=== PATIENT | male | born 1950 | race Caucasian/White ===

== ENCOUNTER 2022-11-11 05:40 | Day surgery (SDC) | payer MEDICARE ==
[~2022-11-11 05:40] MED LIST: ACETAMINOPHEN TAB 500 MG TAB PO PRN; GABAPENTIN 300 MG CAP PO PRN; MELOXICAM 7.5 MG TAB PO PRN; TRANEXAMIC 1,000 MG/100ML-NACL 1,000 MG in SALINE 1 100ML.BAG IVPB PRN
[2022-11-11] MEDS ORDERED: ONDANSETRON 4 MG/2 ML VIAL IVP ONE (06:02)
[2022-11-11] MEDS ORDERED: HYDROmorphone 0.5 MG/0.5 ML SYRINGE IVP PRN ×4 (06:02→08:50)
[2022-11-11] MEDS ORDERED: LIDOCAINE 1% (10MG/ML) FOR IV START INTRADERMA PRN (06:02)
[2022-11-11] MEDS ORDERED: ONDANSETRON 4 MG/2 ML VIAL ONE (06:08)
[2022-11-11] MEDS ORDERED: DEXAMETHASONE SOD PHOSPHATE 4 MG/ML 1 ML VIAL IVP ONE (06:20)
[2022-11-11] MEDS: LACTATED RINGERS 1,000 ML IV SCH ×2 (06:20→11:20)
[2022-11-11] MEDS ORDERED: MIDAZOLAM 2 MG/2 ML VIAL IVP ONE (06:40)
[2022-11-11 07:06] LABS: Glucose,Whole Blood 120 mg/dL (70-110)
[2022-11-11] MEDS ORDERED: ceFAZolin 1,000 MG in SODIUM CHLORIDE 0.9% 1,000 ML IRRIGATION ONE (07:06)
--- NOTE | 2022-11-11 08:14 | P.OP ---
Date of Procedure: 11/11/22 Preoperative Diagnosis: Severe osteoarthritis right knee Postoperative Diagnosis: Severe osteoarthritis right knee Procedure(s) Performed: Right total knee arthroplasty Implants: Rub[employer] Nephew Journey II CR Oxinium cruciate retaining femoral component size 8, right [employer] Journey nonporous tibial baseplate size 7, right [employer] Journey II, XLPE Deep Dished articular insert, size 12 mm, Size 7-8, right [employer] Journey Jasmine II resurfacing patellar component, oval, 35 mm All components were cemented using Palacos R bone cement The articulation is Oxinium on polyethylene Anesthesia: spinal Surgeon: Suhail Pike Transition Manager #1: Suzette Todd Estimated Blood Loss (ml): 50 Pathology: none sent Condition: stable Disposition: PACU Indications for Procedure: The patient's knee is end-stage, and conservative management has failed. The operation of knee replacement has been discussed at length in the office, as well as potential risks and complications. These are inclusive of, but not li mited to: Infection, bleeding, scarring, discomfort, stiffness, blood vessel and nerve damage, need for further surgery, failure to relieve symptoms, persistence, recurrence, or worsening of problems, loosening, dislocation, wear, blood clot, pulmonary embolism, , gait dysfunction, stiffness, and other risks as discussed in the office. Patient elects to proceed and the consent form has been signed. Operative Findings: The operative findings are consistent with severe osteoarthritis of the right knee Description of Procedure: The patient was seen in the preoperative area, the consent was reviewed and the operative site was marked with a skin marker. The patient verified the procedure and the operative site. An adductor canal pain catheter and an iPACK block were placed by anesthesia in the preoperative area. The patient was then brought to the operating room and positioned on the operating room table in the supine position. Preoperative antibiotics and a gram of tranexamic acid were given intravenously. A spinal anesthetic was administered by the anesthesia department. Care was taken to make sure that all pressure points were adequately padded. A tourniquet was placed on the upper thigh and the lower extremity was prepped with ChloraPrep and draped in usual sterile fashion. A universal time-out was then performed which confirmed the patient's name, surgical site, ALLERGIES, and consent. The lower extremity was then exsanguinated and tourniquet was inflated to 250 mmHg. A standard anterior midline approach to the knee was performed. The skin and subcutaneous tissue were sharply dissected down to the patellar tendon. A medial parapatellar arthrotomy was then performed. The knee was then extended, the patellar was everted, and the knee was flexed. The infra-patellar fat pad was removed in order to enhance exposure. The anterior horns of both menisci were excised, and a release was performed to the posterior medial aspect of the knee. On gross visual inspection, there was complete loss of articular cartilage in the medial and patellofemoral joint spaces. There was also significant cartilage damage in the lateral compartment. There were multiple periarticular osteophytes globally about the knee which were then removed with a Ronguer. The femoral canal was then opened with the 9.5 mm intramedullary drill. The 8 mm intramedullary maurice was then inserted into the femoral canal with the distal femoral cutting guide set for 5 of valgus. The distal femoral cutting block was then pinned in place. The intramedullary maurice was then removed, and the distal femur was then cut. The cutting block was then removed and the cut was checked for symmetry. The resected bone was then measured to confirm the appropriate distal femoral resection. Next, the sizing guide was then placed and set for 3 external rotation based off of the epicondylar axis and [place]'s line. Pins were then placed and the drill holes, and the femur was sized with the sizing stylus. The pins were then removed, and the sizing guide was then removed. The spikes of the appropriate size femoral block was t hen placed into the predrilled holes, and malleted into place. Two 45 mm pins were then placed into the fixation holes on the cutting block. An hugo wing was then used to ensure there would be no notching with the anterior cut. The anterior condyles were cut without notching. The anterior chord cut was then performed, followed by the posterior cut, posterior chamfer cut, and the anterior chamfer cut. The collateral ligaments were protected during the entire process. The cutting block was then removed. Any remaining bone and osteophytes were removed from the femur with a Ronguer. Attention was then directed to the tibia. The remaining ACL was removed with a Ronguer, and the tibia was then gently subluxed forward with a large bent knee retractor. Any remaining menisci were excised. The posterior lateral corner was cauterized in order to coagulate the lateral geniculate artery. The extra medullary tibial cutting guide was then placed, set for the appropriate rotation, slope, and depth of resection. The proximal tibia cutting guide was then pinned in place. Proximal tibia was then cut and sized. A curved osteotome was then used to remove any posterior osteophytes from the distal femur. The femoral trial was placed. A narrow saw blade was then used to remove the anterior intracondylar femoral bone. The CR notch trial was then placed. The tibial trial was placed with the appropriate-sized insert. The knee was able to fully extend and flex to 130 and was stable throughout all range of motion. The knee was then extended and the patella was everted. Patella was then measured, and then using an osteotomy guide, the patella was cut at the appropriate level. The patellar component was sized. The patellar drill guide was placed and the patella was drilled. The patella trial was then placed. The knee was then taken through range of motion with the patella trial and the patella tracked normally using the no thumbs technique. The patella trial was then removed. The knee was then flexed and lug holes were drilled through the femoral trial and the femoral trial was then removed. The tibial was then re- exposed, and the tibial broach guide was then pinned in place after it was set for the appropriate rotation to allow for the most coverage without overhang. The tibia was then reamed and broached. The femoral canal was plugged with autologous bone. The cut surfaces of bone were then irrigated with pulsatile lavage. The knee was also irrigated with Irrisept solution. The components were then opened, the cement was mixed. Cement was placed on the backside of the femoral, tibial, and patellar components. Cement was then applied to the tibial surface and pressurized into the surface using finger pressurization technique. The tibial component was then applied and excess cement was removed after it was impacted securely noted to be flush with the cut surface. In similar fashion, the cement was applied to the cut femoral surface, pre ssurized and using finger pressurization the component was impacted in place. Excess cement was removed. The polyethylene spacer was then implanted and locked into position. Patellar component was then applied in a similar technique and the patellar clamp was used to hold patella in place while the cement hardened. The knee was held in full extension while the cement hardened. Once the cement had fully hardened, the knee was reinspected. Any other cement extrusion was removed the final range of motion testing showed range of motion from 0-130 with excellent stability, both medial and laterally and appropriate alignment of the leg. Patella tracked normally. After the cemented hardened, the tourniquet was released and hemostasis was obtained. A second gram of transexamic acid was given intravenously. The knee was again irrigated. The knee was again taken through range of motion and found to be stable throughout all range of motion of 0-130, and the patella tracked normally. The fascia was then closed with 0 Vicryl followed by #2 strata fix suture. The subcutaneous tissue was closed with 3-0 Vicryl and 3-0 strata fix. Exofin glue was used for the skin and placed with the knee in flexion. After the glue had dried, and Optafoam silver impregnated dressing was applied. A lightly compressive dressing was applied using web roll and Edwardo wrap. Patient was then transferred to the stretcher and taken to recovery room in stable condition. Sponge and needle counts were correct. The library services assistant GALE Rausch was required due the complexity surgery and the need for a skilled surgical orderly. She assisted in positioning, draping, retraction, and closure of the wound.
[2022-11-11] MEDS ORDERED: NA PHOS,M-B/NA PHOS,DI-BA 133 ML ENEMA RECTAL PRN (08:50)
[2022-11-11] MEDS ORDERED: TEMAZEPAM 15 MG CAP PO PRN (08:50)
[2022-11-11] MEDS ORDERED: MAGNESIUM HYDROXIDE 2,400 MG/30 ML CUP PO PRN (08:50)
[2022-11-11] MEDS ORDERED: HYDROcodone/APAP 5-325MG 1 EACH TAB PO PRN (08:50)
[2022-11-11] MEDS ORDERED: bisacodyL 10 MG SUPP RECTAL PRN (08:50)
[2022-11-11] MEDS ORDERED: NALOXONE 0.4 MG/ML 1 ML VIAL IV PRN (08:50)
[2022-11-11] MEDS ORDERED: ONDANSETRON 4 MG/2 ML VIAL IVP PRN (08:50)
--- NOTE | 2022-11-11 09:19 | XR ---
EXAMINATION TYPE: XR knee limited RT DATE OF EXAM: 11/11/2022 9:15 AM INDICATION: Patient age:Male; 72 years old; Reason for study: Evaluation for Postop abnormality and alignment; PHH. COMPARISON: None. TECHNIQUE: The Right knee(s) was examined in Frontal and crosstable lateral projections. FINDINGS: Postsurgical changes from right knee arthroplasty with distal femoral and proximal tibial components. Hardware appears intact with appropriate alignment. There is associated soft tissue gas and edema. No acute fracture or dislocation. IMPRESSION: Post surgical changes from right knee arthroplasty. Hardware appears intact with appropriate alignmen t.
[2022-11-11] MEDS ORDERED: LACTATED RINGERS 1,000 ML IV ONE ×2 (09:49)
[2022-11-11 11:23] LABS: Glucose,Whole Blood 159 mg/dL (70-110)
[2022-11-11] MEDS: HYDROcodone/APAP 5-325MG 1 EACH TAB PO PRN ×2 (12:07→18:22)
[2022-11-11 16:39] LABS: Glucose,Whole Blood 292 mg/dL (70-110)
--- NOTE | 2022-11-11 17:25 | P.CONS ---
History of Present Illness - Reason for Consult Consult date: 11/11/22 Medical management Requesting physician: Suhail Pike - History of Present Illness History of Presenting Illness: Patient is a very pleasant 72-year-old male with a past medical history coronary artery disease, hypertension, hyperlipidemia, type II vvc-arqmvwf-icssniwhj diabetes mellitus, and BPH. He is currently admitted under orthopedic surgery team and is status post elective right total knee arthroplasty secondary to severe osteoarthritis of right knee. We have been consulted for medical management throughout patient's hospitalization. Patient seen and fully adria luated at bedside. Patient denies having any headache, lightheadedness, dizziness, chest pain, palpitations, shortness of breath, or experiencing any numbness/tingling/focal weakness. Patient does report having postoperative urinary retention. He denies having any nausea or vomiting and denies any other complaints at this time. Review of systems: Pertinent positives and negatives as discussed in HPI, a complete review of systems was performed and all other systems are negative. Physical exam: Vital signs reviewed and stable. General: Nontoxic, no distress and appears stated age. Derm: Skin warm and dry, normal coloration for ethnicity. Head: Atraumatic, normocephalic and symmetric. Eyes: EOMs intact, no lid lag, and anicteric sclera Mouth: no lip lesions, mucus membranes moist Cardiovascular: regular rate and rhythm with normal S1S2, no murmur, positive posterior tibial pulses bilaterally, and cap refill < 2 seconds. Lungs: Respirations even, regular, and unlabored on room air. Lungs CTA bilaterally, no rhonchi, no rales, no wheezing, and no accessory muscle usage. Abdominal: soft, nontender to palpation, no guarding, no appreciable organomegaly Ext: No gross muscle atrophy, no edema, no contractures. Movement and sensation intact. Postsurgical dressing/Edwardo wrap in place to right knee with ice packs in place. Neuro: Speech clear, face symmetrical and CN II-XII grossly intact with no noted focal neuro deficits Psych: Alert and oriented to person, place, time, and situation. Appropriate and pleasant affect. Assessment and Plan of Care: Severe osteoarthritis of right knee Status post elective right total knee arthroplasty -Management per primary admitting orthopedic surgery team including DVT prophylaxis, pain management, weightbearing, wound/dressing care, and PT/OT. -Patient currently on DVT prophylaxis with aspirin 325 mg twice daily. Postoperative urinary retention History of BPH -Patient started back on Flomax this evening in order placed for bladder management. -We will continue to monitor and straight cath as needed for urinary retention equal to or greater than 400 mL. Patient has required 1 straight catheterization for urinary retention of 900 mL's. Type II hrr-dtdirep-yfrhmoiww diabetes mellitus with hyperglycemia -Hold metformin in place patient on glycemic protocol with NovoLog sliding scale. Coronary artery disease Hypertension Hyperlipidemia -Patient to continue with daily aspirin, hydrochlorothiazide 12.5 mg daily, lisinopril 10 mg twice daily, and simvastatin 40 mg daily. Thank you for allowing us to participate in the care of this pleasant patient. Do not hesitate to contact us with questions. Someone can be reached from the [facility] hospitalist group all hours of the day at [phone] or via [employer]. Patient was seen independently by Nurse Practitioner. This document was prepared using [employer] dictation software. Please allow for errors in meat passer while rare they do occur. Past Medical History Past Medical History: Coronary Artery Disease (CAD), Cancer, Diabetes Mellitus, Eye Disorder, Hearing Disorder / Deafness, Hyperlipidemia, Hypertension, Osteoarthritis (OA), Sleep Apnea/CPAP/BIPAP Additional Past Medical History / Comment(s): Basal cell skin cancer with removal, NIDDM type II, glaucoma bilaterally, [place] bilaterally with aides, JESSIE with dental appliance, benign colon polyps History of Any Multi-Drug Resistant Organisms: None Reported Past Surgical History: Joint Replacement, Orthopedic Surgery, Tonsillectomy Additional Past Surgical History / Comment(s): Bilateral knee arthroscopies, total R hip, colonoscopies Past Anesthesia/Blood Transfusion Reactions: Motion Sickness Past Psychological History: Anxiety Additional Psychological History / Comment(s): Pt resides with spouse. Pt has a cane occasionally. Smoking Status: Former smoker Past Alcohol Use History: Daily Additional Past Alcohol Use History / Comment(s): Pt started smoking in 1967 and quit in 2014. One beer a day. Past Drug Use History: None Reported - Past Family History Mother Family Medical History: Cancer Additional Family Medical History / Comment(s): from colon cancer. Father Family Medical History: Diabetes Mellitus, Myocardial Infarction (CT) Additional Family Medical History / Comment(s): IDDM Medications and Allergies Home Medications Medication Instructions Recorded Confirmed Type Aspirin [Adult Low Dose Aspirin EC] 81 mg PO QAM 11/07/22 11/07/22 History Cyanocobalamin [Vitamin B-12] 500 mcg PO DAILY 11/07/22 11/07/22 History Fexofenadine HCl 180 mg PO QAM 11/07/22 11/11/22 History Ibuprofen 600 mg PO Q6H PRN 11/07/22 11/07/22 History Latanoprost [Latanoprost 0.005%] 1 drop HS 11/07/22 11/11/22 History Magnesium Citrate 133 mg PO QAM 11/07/22 11/07/22 History Multivitamins, Thera [Multivitamin 1 tab PO QAM 11/07/22 11/07/22 History (formulary)] Sertraline [Zoloft] 25 mg PO HS 11/07/22 11/11/22 History Simvastatin 40 mg PO QAM 11/07/22 11/11/22 History Tamsulosin [Flomax] 0.4 mg PO HS 11/07/22 11/11/22 History hydroCHLOROthiazide 12.5 mg PO QAM 11/07/22 11/11/22 History lisinopriL [Zestril] 10 mg PO BID 11/07/22 11/11/22 History metFORMIN HCL [Glucophage] 850 mg PO BID 11/07/22 11/11/22 History Aspirin 325 mg PO BID #60 tab 11/11/22 Rx HYDROcodone/APAP 7.5-325MG [Marrero 1 - 2 tab PO Q6HR PRN #32 tab 11/11/22 Rx 7.5-325] Meloxicam 7.5 mg PO DAILY PRN #30 tab 11/11/22 Rx Ondansetron Odt [Zofran Odt] 4 mg PO Q8HR PRN #14 tab 11/11/22 Rx Sennosides-Docusate Sodium 1 tab PO BID #60 tablet 11/11/22 Rx [Senokot-S] Allergies Allergy/AdvReac Type Severity Reaction Status Date / Time No Known Allergies Allergy Verified 11/11/22 06:14 Physical Exam Vitals: Vital Signs Temp Pulse Pulse Resp BP Pulse Ox 11/11/22 14:00 97.4 F L 68 18 150/65 97 11/11/22 11:24 97 11/11/22 11:07 97.5 F L 72 17 146/80 97 11/11/22 10:30 71 16 134/67 97 11/11/22 10:00 62 14 127/65 97 11/11/22 09:30 71 16 144/74 98 11/11/22 09:15 70 14 143/71 96 11/11/22 09:00 68 16 144/70 96 11/11/22 08:44 97.0 F L 64 14 155/73 96 11/11/22 06:53 66 15 139/66 97 11/11/22 06:18 97.2 F L 68 18 159/68 91 L Intake and Output 11/11/22 11/11/22 11/11/22 06:59 14:59 22:59 Intake Total 200 951 Output Total 50 900 Balance 200 901 -900 Intake: IV 200 951 Output: Urine 900 Straight 900 Estimated Blood Loss 50 Other: Weight 93.2 kg 93.2 kg Results Labs: Abnormal Lab Results - Last 24 Hours (Table) 11/11/22 11/11/22 11/11/22 Range/Units 06:33 11:22 16:38 POC Glucose (mg/dL) 120 H 159 H 292 H (70-110) mg/dL
[2022-11-11] MEDS: ASPIRIN 325 MG TAB PO SCH (20:44)
[2022-11-11] MEDS: lisinopriL 10 MG TAB PO SCH (20:44)
--- NOTE | 2022-11-11 20:49 | P.ANPRN ---
Procedure Note - Anesthesia - Nerve Block Performed Right Adductor Canal Infusion Time Out Performed: Yes Date of Procedure: 11/11/22 Procedure Start Time: 06:39 Procedure Stop Time: 06:48 Location of Patient: PreOp Indication: Acute Post-Operative Pain, Requested by Surgeon Sedation Type: Sedate with meaningful contact maintained Preparation: Sterile Prep Position: Supine Catheter: Indwelling Needle Types: On-Q Needle Gauge: 21 Ultrasound used to visualize needle placement: Yes Ultrasound used to observe medication spread: Yes Blood Aspirated: No Pain Paresthesia on Injection Noted: No Resistance on Injection: Normal Image Stored and Saved: Yes Events: Uneventful and Well Tolerated (ropi .5% 20cc plus dexamethasone 4mg)
--- NOTE | 2022-11-11 20:50 | P.ANPRN ---
Procedure Note - Anesthesia - Nerve Block Performed Right Isabelck Single Time Out Performed: Yes Date of Procedure: 11/11/22 Procedure Start Time: 06:49 Procedure Stop Time: 06:53 Location of Patient: PreOp Indication: Acute Post-Operative Pain, Requested by Surgeon Sedation Type: Sedate with meaningful contact maintained Preparation: Sterile Prep Position: Supine Needle Types: Pajunk Needle Gauge: 21 Ultrasound used to visualize needle placement: Yes Ultrasound used to observe medication spread: Yes Blood Aspirated: No Pain Paresthesia on Injection Noted: No Resistance on Injection: Normal Image Stored and Saved: Yes Events: Uneventful and Well Tolerated (ropi .5% 25cc plus dexamethasone 4mg)
[2022-11-11 20:59] LABS: Glucose,Whole Blood 225 mg/dL (70-110)
[2022-11-11] MEDS ORDERED: TAMSULOSIN 0.4 MG CAP.ER.24H PO SCH (21:00)
[2022-11-11] MEDS ORDERED: LATANOPROST 0.005% OPHTH DROPS 2.5 ML BTL BOTH EYES SCH (21:00)
[2022-11-11] MEDS ORDERED: SERTRALINE 25 MG TAB PO SCH (21:00)
[2022-11-11] MEDS ORDERED: SENNOSIDES-DOCUSATE SODIUM 1 EACH TAB PO SCH (21:00)
[2022-11-12] MEDS: HYDROcodone/APAP 5-325MG 1 EACH TAB PO PRN ×2 (00:28→10:08)
[2022-11-12 05:51] LABS: Glucose,Whole Blood 161 mg/dL (70-110)
[2022-11-12 07:45] VITALS: BP 126/67; PULSE 79; RESP 16; TEMP 98.2
--- NOTE | 2022-11-12 08:14 | P.PN ---
Progress Note - Text 11/12/22 747am 72-year-old male status post total knee replacement. Patient has an On-Q pump for postop pain control with the solution running at 8 mL an hour with a VAS of dressing clean dry and intact plan to continue On-Q pump infusion
[2022-11-12] MEDS ORDERED: CYANOCOBALAMIN 500 MCG TAB PO SCH (09:00)
[2022-11-12] MEDS ORDERED: ATORVASTATIN 20 MG TAB PO SCH (09:00)
[2022-11-12] MEDS ORDERED: MELOXICAM 7.5 MG TAB PO SCH (09:00)
[2022-11-12] MEDS ORDERED: hydroCHLOROthiazide 12.5 MG CAP PO SCH (09:00)
[2022-11-12] MEDS: LACTATED RINGERS 1,000 ML IV SCH ×2 (09:50)
[2022-11-12] MEDS: ASPIRIN 325 MG TAB PO SCH (09:58)
[2022-11-12] MEDS: lisinopriL 10 MG TAB PO SCH (09:59)
[2022-11-12 11:11] LABS: Basophils # (A) 0.01 X 10*3/uL (0.00-0.10); Basophils % (A) 0.1 %; Eosinophils # (A) 0.01 X 10*3/uL (0.04-0.35); Eosinophils % (A) 0.1 %; HCT 29.8 % (39.6-50.0); HGB 10.2 d/dL (13.0-17.0); Lymphocytes # (A) 0.85 X 10*3/uL (0.90-5.00); Lymphocytes % (A) 10.4 %; MCH 30.7 pg (27.0-32.0); MCHC 34.2 d/dL (32.0-37.0); MCV 89.8 FL (80.0-97.0); Mean Platelet Volume 9.1 FL (9.5-12.2); Monocytes # (A) 0.94 X 10*3/uL (0.20-1.00); Monocytes % (A) 11.5 %; NRBC Per 100 WBC 0 X 10*3/uL (0.00-0.01); Neutrophils # (A) 6.35 X 10*3/uL (1.80-7.70); Neutrophils % (A) 77.5 %; Platelet Count 215 X 10*3/uL (140-440); RBC 3.32 X 10*6/uL (4.40-5.60); RDW 12.2 % (11.5-14.5); WBC 8.19 X 10*3/uL (4.50-10.00)
[2022-11-12 11:25] LABS: Glucose,Whole Blood 129 mg/dL (70-110)
--- NOTE | 2022-11-12 11:51 | P.DS ---
Providers Date of admission: 11/11/2022 Expected date of discharge: 11/12/22 Attending physician: Suhail Pike Consults: 11/11/22 08:50 Consult Physician Routine Consulting Provider: Jill Rollins Consult Reason/Comments: medical management Do you want consulting provider notified?: Yes Primary care physician: Stated None - Discharge Diagnosis(es) (1) History of BPH Current Visit: Yes Status: Acute (2) Postoperative urinary retention Current Visit: Yes Status: Acute (3) Type 2 diabetes mellitus Current Visit: Yes Status: Acute (4) Coronary artery disease Current Visit: Yes Status: Acute (5) Osteoarthritis of right knee Current Visit: Yes Status: Acute (6) Status post total right knee replacement Current Visit: Yes Status: Acute Hospital Course: This is a pleasant 72-year-old male who presented with severe osteoarthritis of the right knee who failed outpatient conservative therapy. He was admitted for a right total knee arthroplasty. The patient tolerated the procedure well and did well postoperatively in regards to his right knee. He does feel he would be ready for discharge home today regards to his right knee. Condition on day of discharge stable. Patient was cleared preoperatively for surgery. He has been able to work with physical therapy and feels ready for discharge for his right knee. Patient currently denies any nausea, vomiting, fever, or chills. Patient is eating and voiding freely without difficulty. Patient may shower Optifoam dressing intact. Patient may remove Optifoam dressing in 7 days and shower without a dressing at that time. Patient may weight-bear as tolerated on the right lower extremity with the assistance of a walker. MAPS has been previously reviewed. An "Opiod Start Talking" Form has been signed and placed in the patient's chart. A prescription has been written for hydrocodone 7.5 mg/325 mg, 1-2 tabs every 6 hours as needed for acute pain, dispensed #32. Patient's other medical diagnoses include history of BPH, type 2 diabetes, and coronary artery disease. Patient is on Flomax. He has had some difficulty with postoperative urinary retention. He did require straight catheterization twice yesterday. He is being monitored by medicine. We did discuss he will need to be a to urinate independently prior to discharge home and will need to be cleared by medicine. On-Q pain pump to be managed by anesthesia. Patient will hold aspirin 81 mg daily while taking prescribed aspirin 325 mg twice a day. Physical Exam on day of discharge: Status post surgical day number 1 Patient is awake, alert, and oriented 3 Vital signs stable Good chest excursion with deep inspiration and expiration No signs or symptoms of DVT; no calf pain Dressing is dry and intact with one small area of dried blood; no erythema, purulence, or signs of infection Dorsiflexion, plantar flexion, and extensor hallucis longus positive sustained right lower extremity Neurovascular status left lower extremity intact Procedures: Status post right total knee arthroplasty Patient Condition at Discharge: Stable Plan - Discharge Summary Discharge Rx Participant: Yes New Discharge Prescriptions: New Aspirin 325 mg PO BID #60 tab Meloxicam 7.5 mg PO DAILY PRN #30 tab PRN Reason: Pain Ondansetron Odt [Zofran Odt] 4 mg PO Q8HR PRN #14 tab PRN Reason: Nausea HYDROcodone/APAP 7.5-325MG [Thelma 7.5-325] 1 - 2 tab PO Q6HR PRN #32 tab PRN Reason: Pain Sennosides-Docusate Sodium [Senokot-S] 1 tab PO BID #60 tablet No Action Magnesium Citrate 133 mg PO QAM Cyanocobalamin [Vitamin B-12] 500 mcg PO DAILY Multivitamins, Thera [Multivitamin (formulary)] 1 tab PO QAM Aspirin [Adult Low Dose Aspirin EC] 81 mg PO QAM Tamsulosin [Flomax] 0.4 mg PO HS Simvastatin 40 mg PO QAM metFORMIN HCL [Glucophage] 850 mg PO BID lisinopriL [Zestril] 10 mg PO BID Ibuprofen 600 mg PO Q6H PRN PRN Reason: Pain Fexofenadine HCl 180 mg PO QAM Latanoprost [Latanoprost 0.005%] 1 drop HS Sertraline [Zoloft] 25 mg PO HS hydroCHLOROthiazide 12.5 mg PO QAM Discharge Medication List Aspirin [Adult Low Dose Aspirin EC] 81 mg PO QAM 11/07/22 [History] Cyanocobalamin [Vitamin B-12] 500 mcg PO DAILY 11/07/22 [History] Fexofenadine HCl 180 mg PO QAM 11/07/22 [History] Ibuprofen 600 mg PO Q6H PRN 11/07/22 [History] Latanoprost [Latanoprost 0.005%] 1 drop HS 11/07/22 [History] Magnesium Citrate 133 mg PO QAM 11/07/22 [History] Multivitamins, Thera [Multivitamin (formulary)] 1 tab PO QAM 11/07/22 [History] Sertraline [Zoloft] 25 mg PO HS 11/07/22 [History] Simvastatin 40 mg PO QAM 11/07/22 [History] Tamsulosin [Flomax] 0.4 mg PO HS 11/07/22 [History] hydroCHLOROthiazide 12.5 mg PO QAM 11/07/22 [History] lisinopriL [Zestril] 10 mg PO BID 11/07/22 [History] metFORMIN HCL [Glucophage] 850 mg PO BID 11/07/22 [History] Aspirin 325 mg PO BID #60 tab 11/11/22 [Rx] HYDROcodone/APAP 7.5-325MG [Thelma 7.5-325] 1 - 2 tab PO Q6HR PRN #32 tab 11/11/22 [Rx] Meloxicam 7.5 mg PO DAILY PRN #30 tab 11/11/22 [Rx] Ondansetron Odt [Zofran Odt] 4 mg PO Q8HR PRN #14 tab 11/11/22 [Rx] Sennosides-Docusate Sodium [Senokot-S] 1 tab PO BID #60 tablet 11/11/22 [Rx] Follow up Appointment(s)/Referral(s): [facility],Equipment [NON-STAFF] - As Needed (*Please call [facility] once home to arrange delivery of the Continuous Passive Motion (CPM) machine. ) [facility] [NON-STA[facility]] - 1-2 Days ([facility] will call you to schedule your in home physical therapy visits. ) Suhail Pike DO [Doctor of Osteopathic Medicine] - 2 Weeks Activity/Diet/Wound Care/Special Instructions: 1. Weightbearing as tolerated with walker on the right lower extremity. 2. Remove Optifoam dressing 7 days postop. 3. May shower 48 hours postop. 4. Patient will hold aspirin 81 mg daily while taking prescribed aspirin 325 mg twice a day. Discharge Disposition: HOME WITH HOME HEALTH SERVICES
[2022-11-12 12:37] VITALS: BMI 29.5
--- NOTE | 2022-11-12 15:30 | P.PN ---
Subjective Progress Note Date: 11/12/22 Hospital course: Patient is a very pleasant 72-year-old male with a past medical history coronary artery disease, hypertension, hyperlipidemia, type II [id number]-pddcuhgir diabetes mellitus, and BPH. He is currently admitted under orthopedic surgery team and is status post elective right total knee arthroplasty secondary to severe osteoarthritis of right knee. We have been consulted for medical management throughout patient's hospitalization. Physical exam: Vital signs reviewed and stable. General: Nontoxic, no distress and appears stated age. Derm: Skin warm and dry, normal coloration for ethnicity. Head: Atraumatic, normocephalic and symmetric. Eyes: EOMs intact, no lid lag, and anicteric sclera Mouth: no lip lesions, mucus membranes moist Cardiovascular: regular rate and rhythm with normal S1S2, no murmur, positive posterior tibial pulses bilaterally, and cap refill < 2 seconds. Lungs: Respirations even, regular, and unlabored on room air. Lungs CTA bila terally, no rhonchi, no rales, no wheezing, and no accessory muscle usage. Abdominal: soft, nontender to palpation, no guarding, no appreciable organomegaly Ext: No gross muscle atrophy, no edema, no contractures. Movement and sensation intact. Postsurgical dressing/Edwardo wrap in place to right knee with ice packs in place. Neuro: Speech clear, face symmetrical and CN II-XII grossly intact with no noted focal neuro deficits Psych: Alert and oriented to person, place, time, and situation. Appropriate and pleasant affect. Assessment and Plan of Care: Acute blood loss anemia, expected outcome of post-operative status -Morning labs reviewed. CBC showing acute postoperative blood loss anemia with hemoglobin of 10.2. This is a stable finding. No need for transfusion or any further interventions at this time. -Vital signs reviewed. Blood pressure 126/67, heart rate 79, respiratory rate 16, temp 98.2F, SpO2 of 92% on room air. Severe osteoarthritis of right knee Status post elective right total knee arthroplasty -Management per primary admitting orthopedic surgery team including DVT prophylaxis, pain management, weightbearing, wound/dressing care, and PT/OT. -Patient currently on DVT prophylaxis with aspirin 325 mg twice daily. Postoperative urinary retention, resolved. Patient to continue with Flomax 0.4 mg daily. History of BPH. Patient to continue with Flomax 0.4 mg daily. Type II [id number]-[id number] diabetes mellitus with hyperglycemia. May resume metformin 850 mg twice daily upon discharge. Coronary artery disease Hypertension Hyperlipidemia -Patient to continue with daily aspirin, hydrochlorothiazide 12.5 mg daily, lisinopril 10 mg twice daily, and simvastatin 40 mg daily. Medically, patient is clear for discharge once cleared by primary admitting orthopedic surgery team. Thank you for allowing us to participate in the care of this pleasant patient. Do not hesitate to contact us with questions. Someone can be reached from the [facility] hospitalist group all hours of the day at [phone] or via [employer]. Patient was seen independently by Nurse Practitioner. This document was prepared using [employer] dictation software. Please allow for errors in floriculturist while rare they do occur. I reviewed the documentation as provided by the TASNEEM above, who is the original author of this note. I agree with the documented assessment and plan, with the following changes: none Objective - Vital Signs Vital signs: Vital Signs Temp 98.2 F 11/12/22 06:53 Pulse 79 11/12/22 06:53 Resp 16 11/12/22 06:53 BP 126/67 11/12/22 06:53 Pulse Ox 92 L 11/12/22 06:53 FiO2 Intake & Output 11/11/22 11/12/22 11/12/22 18:59 06:59 18:59 Intake Total 951 Output Total 1850 1464 Balance -899 -1464 Weight 93.2 kg Intake: IV 951 Output: Urine 1800 750 Straight 900 300 Post Void Residual 714 Estimated Blood Loss 50 Other: # Voids 1 - Labs CBC & Chem 7: 11/12/22 07:17 Labs: Abnormal Lab Results - Last 24 Hours (Table) 11/11/22 11/11/22 11/11/22 Range/Units 11:22 16:38 20:57 POC Glucose (mg/dL) 159 H 292 H 225 H (70-110) mg/dL 11/12/22 Range/Units 05:50 POC Glucose (mg/dL) 161 H (70-110) mg/dL
== END 2022-11-12 14:00 | disposition home health service (06) ==
LOC: OR 05:40 → 4SSUR 08:41 → OR 11-12 14:00
PROVIDERS: ATTEND Orthopaedic Surgery
DX: M17.11 Unilateral primary osteoarthritis, right knee (principal); G89.18 Other acute postprocedural pain; I10 Essential (primary) hypertension; E78.5 Hyperlipidemia, unspecified; I25.10 Atherosclerotic heart disease of native coronary artery without angina pectoris; Z79.82 Long term (current) use of aspirin; Z90.89 Acquired absence of other organs; Z87.891 Personal history of nicotine dependence; Z86.59 Personal history of other mental and behavioral disorders; Z79.899 Other long term (current) drug therapy
CPT/HCPCS: 94760; 97161; 64999; 64448; 85025; 73560; 27447; C1713; C1776; C1751; J2250; J1100; J0690 ×2; J2405